=== PATIENT | female | born 1945 | race Hispanic/Latino ===

== ENCOUNTER 2018-09-09 02:26 | Emergency (ER) | payer MEDICARE ==
[~2018-09-09 02:26] MED LIST: ADRENALIN ONE; CALCIUM CHLORIDE IV ONE; XYLOCAINE CARDIAC IV ONE
--- NOTE | 2018-09-09 02:57 | Emergency Department Report ---
ED CPR HPI - General Chief Complaint: Cardiac Arrest/CPR Stated Complaint: CARDIAC ARREST Time Seen by Provider: 09/09/18 02:43 Source: family, EMS Mode of arrival: Stretcher Limitations: Other - History of Present Illness Initial Comments: Mrs. Saini is a 72 yo female with hx of tobacco abuse who presents to ER in cardiac arrest. Just 12 hours prior to arrival, she was evaluated at [facility] for severe chest pain. According to , she was accepted to [facility], [place] for further treatment and evaluation as a [facility] patient. Sadly, Mrs. Saini left against medical advice to go home. discovered her prone and unresponsive. EMS treated patient with insertion of Chris airway, epinephrine, sodium bicarbonate, 2 shocks. Initial rhythm asysole. Secondary rhythm ventricular fibrillation. Down time prior to arrival of EMS 7 minutes without CPR. Blood glucose 206 in the field. suspects that his had a heart attack considering the recommendations during ER treatment today. No significant medical history according to . She had appendectomy 30 years ago. 4 children vaginal delivery. 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 She has several grandchildren. Complaint: found unresponsive Place: home Bystander CPR Performed: No Downtime Before ACLS Arrival (mins): 7 Initial Findings in the Field: unresponsive ROSC in the Field: No Associated Injuries: No Associated Symptoms: chest pain Treatments Prior to Arrival: other airway device, defribrillated shocks # (2), epinephrine mgs # (2), sodium bicarbonate (1) ED Review of Systems ROS: Stated complaint: CARDIAC ARREST Other details as noted in HPI Comment: Unobtainable due to pts medical conditions ED Past Medical Hx - Past Medical History Previous Medical History?: No - Surgical History Past Surgical History?: Yes Hx Appendectomy: Yes - Social History Smoking Status: Current Every Day Smoker ED Physical Exam - General Limitations: Other (lifeless) General appearance: other (lifeless, bluish facial discoloration) - Head Head exam: Present: atraumatic, normocephalic - Eye Eye exam: Present: other (fixed dilated pupils) - ENT ENT exam: Present: other (pale mucosa, chris airway device in place) - Neck Neck exam: Present: normal inspection - Respiratory Respiratory exam: Present: other (coarse breath sounds with ventilation, no spontaneous respirations) - Cardiovascular Cardiovascular Exam: Present: other (no palpable pulse, no heart sounds on auscultation) - GI/Abdominal GI/Abdominal exam: Present: soft, distended - Extremities Exam Extremities exam: Present: pedal edema - Neurological Exam Neurological exam: Present: other (lifeless, no spontaneous movement) - Psychiatric Psychiatric exam: Present: other (lifeless) ED Medical Decision Making - Medical Decision Making Mrs. Saini presented in cardiac arrest with asysole initial rhythm then conversion to ventricular fibrillation. PEA rhythm on arrival to ED. Chest compressions were continued with addtional several shocks, epinephrine doses, calcium. Ventilation with Chris Airway adequate with 100% oxygen saturation on monitor. After continued resuscitation, asystole was the final rhythm. I discussed care with during resuscitation. He advised to continue CPR and resuscitative efforts. He stood outside of the room during resuscitation. TIme of [id number]. Critical care attestation.: If time is entered above; I have spent that time in minutes in the direct care of this critically ill patient, excluding procedure time. ED Disposition Clinical Impression: Cardiac arrest Disposition: DC-20 Is pt being admited?: No Does the pt Need Aspirin: No Condition: Stable Time of Disposition: 02:35 (time of )
== END 2018-09-09 06:39 ==
LOC: ED 02:26
DX: I46.9 Cardiac arrest, cause unspecified (principal); F17.200 Nicotine dependence, unspecified, uncomplicated; Z90.49 Acquired absence of other specified parts of digestive tract
CPT/HCPCS: 92950; 99285; J0171; J2001